=== PATIENT | female | born 1985 | race Caucasian/White ===

== ENCOUNTER 2019-06-29 16:01 | Inpatient (IN) ==
--- NOTE | 2019-06-29 16:10 | PROVIDER DOCUMENTATION ---
HPI-General Adult - General Stated Complaint: R-FOOT INJURY Time Seen by Provider: 06/29/19 16:09 Source: patient Allergies/Adverse Reactions: Patient Allergies Allergy/AdvReac Type Severity Reaction Status Date / Time No Known Allergies Allergy Verified 06/29/19 18:04 - History of Present Illness -Gen Adult Nature of Presenting Problems: Pt. is 33 yof that presents with c/o right foot pain after she fell a week ago. Pt. reports she thought it was fine but now it is red and swollen. Pt. denies any other complaints. Location of Pain/Injury: reports: feet (Right). denies: none, head, face, mouth, neck, chest, upper extremity, hand(s), abdomen, back, pelvis, genitalia, lower extremity, upper body, lower body, generalized, other Pain Radiation: reports: no radiation. denies: arm(s), back, buttocks, chest, epigastric, feet, groin, jaw, flank (L), legs (lower), LLQ, LUQ, neck, periumbilical, flank (R), RLQ, RUQ, shoulder(s), scapula, scrotal, sternal notch, suprapubic, legs (upper), urethral, vaginal, other Quality of Pain: reports: aching, tightness. denies: burning, pressure, throbbing Severity: reports: moderate. denies: mild, severe Onset/Duration: reports: abrupt, 1 week ago Timing: reports: still present. denies: improving, intermittent, getting worse Context/Activities at Onset: reports: light activity, recent trauma history. denies: none, moderate activity, vigorous activity, recent emotional stress, recent physical stress, possible bad food, cold exposure, eating, out of country travel, rest, sleep, sexual activity, other Modifying Factors: improves with: immobilization. worse with: movement Associated Symptoms: reports: joint pain (Right foot). denies: denies symptoms, anxiety, arm pain, back/neck pain, chest pain, constipation, cough, diaphoresis, diarrhea, dizziness, EENT symptoms, fatigue, fever/chills, genitourinary problems, headaches, heartburn, loss of appetite, malaise, muscle aches, sinus congestion/drainage, nausea, rash, seizure, shortness of breath, sensory/motor loss, pain with inspiration, swelling/mass in abdomen, syncope, vomiting, weakne ss, trouble walking, other Similar Symptoms Previously?: Yes Recently seen or treated by another doctor?: No Review of Systems - Adult - REVIEW OF SYSTEMS - ADULT Constitutional: reports: no symptoms reported Eyes: reports: no symptoms reported Ears, Nose, Mouth & Throat: reports: no symptoms reported Cardiovascular: reports: no symptoms reported Respiratory: reports: no symptoms reported Gastrointestinal: reports: no symptoms reported Genitourinary: reports: no symptoms reported Musculoskeletal: reports: see HPI, joint pain (Right foot). denies: back pain, joint swelling, neck pain Integumentary: reports: no symptoms reported Neurological: reports: no symptoms reported Psychiatric: reports: no symptoms reported Past History - Adult - PAST MEDICAL HISTORY-ADULT Review of Records: reports: Old Records Reviewed, Nursing Assessment Review, Medications Reviewed, Social history reviewed & non-contributory. - IMMUNIZATION STATUS Childhood Immunizations: See Nurse Assessment Flu Vaccine: See Nurse Assessment - FAMILY HISTORY Family History: reviewed, not pertinent - SOCIAL HISTORY Smoking: cigarettes, greater than 1 pack/day Provider spent 3-5 mins advising pt. on dangers of tobacco.: Discussed manners to quit use, and f/u contacts for add'l counseling. Physical Exam-General - PHYSICAL EXAM-ADULT Initial Vital Signs Reviewed: Yes - CONSTITUTIONAL General Appearance: alert, mild distress, thin. negative: anxious, slow to respond, obtunded, combative - EYES Eyes: PERRL/EOMI, pink conjunctivae - HEAD, EARS, NOSE, MOUTH & THROAT HENMT: normocephalic/atraumatic, moist mucous membranes - NECK Neck: non-tender, full range of motion, supple, normal inspection - RESPIRATORY Respiratory: lungs clear, normal breath sounds - CARDIOVASCULAR Cardiovascular: normal peripheral pulses, regular rate, rhythm, no edema - GASTROINTESTINAL (ABDOMEN) Abdominal Exam: normal bowel sounds, non tender, soft - LYMPHATIC Lymphatic: no adenopathy - MUSCULOSKELETAL Back Exam: normal inspection, no CVA tenderness, no vertebral tenderness Extremity: erythema (Right foot), swelling (Right foot), tenderness (Right foot) . negative: deformity, inflammation Peripheral Pulses: radial (R): 2+, radial (L): 2+ - SKIN Integumentary: normal color, normal turgor, warm/dry, erythema (Right foot), swelling (Right foot), tenderness (Right foot). negative: diaphoresis, jaundice, mottled - NEUROLOGIC Neurologic: grossly normal, no motor/sensory deficits - PSYCHIATRIC Psych/Mental Status: normal mood/affect, normal thought content, normal thought process, oriented x 3. negative: anxious, paranoid, tearful Progress - PLAN OF CARE/RESULTS Progress/Plan/Lab Results: Orders Category Date Time Status ED: Urine Bedside ORDERED Care 06/29/19 16:10 Ordered Laboratory Tests 06/29/19 06/29/19 06/29/19 17:15 17:15 17:15 WBC 15.31 H RBC 4.91 Hgb 14.3 Hct 43.7 MCV 89.0 MCH 29.1 MCHC 32.7 L RDW Std Deviation 12.6 Plt Count 490 H MPV 8.9 Immature Gran % (Auto) 0.9 H Neut % (Auto) 73.1 Lymph % (Auto) 17.0 L [place] % (Auto) 7.2 Eos % (Auto) 1.5 Baso % (Auto) 0.3 Immature Gran # (Auto) 0.14 H Neut # (Auto) 11.19 H Lymph # (Auto) 2.60 [place] # (Auto) 1.10 H Eos # (Auto) 0.23 Baso # (Auto) 0.05 Sodium 136 Potassium 3.6 Chloride 96 L Carbon Dioxide 27 Anion Gap 13 BUN 12 Creatinine 0.5 Estimated GFR/1.73 m2 > 60 BUN/Creatinine Ratio 24 Glucose 80 Calculated Osmolality 271 Calcium 9.3 Total Bilirubin 0.17 L AST 20 ALT 64 H Alkaline Phosphatase 130 H C-Reactive Prot, Quant 9.09 H Total Protein 7.5 Albumin 4.0 Globulin 3.5 Albumin/Globulin Ratio 1.1 Plasma Lactate 1.4 Discussed results and plan of care with patient. Patient agrees with plan and verbalizes understanding. Result Diagrams: 06/29/19 17:15 06/29/19 17:15 - XRAY 1 XRAY: Right XRAY Study: Foot ([facility] - [address], [address], [place] [id number] [facility] - [address] , [place] [address] Department of Imaging Patient: JAVIER MISHRA [facility] Date: 06/29/19MR#: [id number] : 1985ADM Status: PRE ERAcct#: [id number] Age/Sex: 33/FRoom/Bed: Loc: ED Ordering Physician: Vicki Rios Family Physician: None,PCP Reason for Procedure: injury Signed FOOT COMPLETE RIGHT - 06/29/2019 INDICATION: injury TECHNIQUE: Three views COMPARISON: None FINDINGS: There is significant pedal edema lower than the dorsal foot. There is a benign bone island in the proximal phalanges of the great toe. No fracture or dislocation. No bony erosions. IMPRESSION: Pedal edema over the dorsal foot, nonspecific. No acute bony abnormality. Electronically signed by Efrain Farr 06/29/2019 4:35 PM 06/29/19 1635 Interpreting Physician: Efrain Farr MD Dictated Date/Time: 06/29/19 1635 cc: Vicki Rios; None,PCP) XRAY Interpretation: See note - CONSULTS/PCP/HOSPITALIST Notification #1 *Consult/PCP/Hospitalist*: Dr. Grissom Time Discussed: 18:10 Reason/Comments: Admission Consult Disposition: Will see in ED, Admit Departure - Departure Date of Disposition Decision: 06/29/19 Time of Disposition Decision: 18:05 DIAGNOSIS: Cellulitis Qualifiers: Site of cellulitis: extremity Site of cellulitis of extremity: lower extremity Laterality: right Qualified Code(s): L03.115 - Cellulitis of right lower limb Disposition: ADMITTED INPATIENT 09 Certified Medical Emergency: Emergent Condition: Stable Referrals and Follow-Ups: None,PCP [Primary Care Provider] - - Critical Care Note This patient required my direct & personal management of CC.: No Attestation - Physician/ MARYBETH Attestation Patient care was provided by Advanced Practice Provider:: Yes Advanced Practice Provider:: Vicki Rios Advanced Practice Provider documentation review:: The Mid-level provider documentation, treatment plan and medical decision making was reviewed by the physician who agrees with all treatment and medical decision making by the MLP. The physician spent face to face time with patient:: No Advanced Practice Provider documentation review:: Supervising physician onsite and consulted in the evaluation and care of this patient. The physician did not have a face to face encounter with the patient.
--- NOTE | 2019-06-29 16:37 | Diag Imaging Result Doc PS360 ---
FOOT COMPLETE RIGHT - 06/29/2019 INDICATION: injury TECHNIQUE: Three views COMPARISON: None FINDINGS: There is significant pedal edema lower than the dorsal foot. There is a benign bone island in the proximal phalanges of the great toe. No fracture or dislocation. No bony erosions. IMPRESSION: Pedal edema over the dorsal foot, nonspecific. No acute bony abnormality. Electronically signed by Efrain Farr 06/29/2019 4:35 PM
[2019-06-29] MEDS ORDERED: VANCOMYCIN 1 GM/NS 1 GM/250 ML IVPB IV ONE ×2 (17:19→21:00)
[2019-06-29 17:33] LABS: BASO# 0.05 X1000 (0.0-0.2); BASO% 0.3 % (0.0-0.8); EOS# 0.23 X1000 (0.0-0.7); EOS% 1.5 % (0.0-10.0); HEMATOCRIT 43.7 % (37.0-47.0); HEMOGLOBIN 14.3 g/dL (12.0-16.0); IMM GRAN# 0.14 X1000 (0.0-0.04); IMM GRAN% 0.9 % (0.0-0.5); MCH 29.1 PG (27-31); MCHC 32.7 g/dL (33-37); MONO% 7.2 % (1.7-9.3); MPV 8.9 FL (7.4-10.4); NEUT# 11.19 X1000 (1.4-6.5); NEUT% 73.1 % (42.2-75.2); PLT 490 X1000 (130-400); RBC 4.91 XMIL (4.2-5.4); RDW 12.6 % (11.5-14.5); WBC 15.31 X1000 (4.8-10.8)
[2019-06-29] MEDS ORDERED: ZOFRAN IV ONE (17:55)
[2019-06-29] MEDS ORDERED: MORPHINE IV ONE (17:56)
[2019-06-29 18:00] LABS: AGAP 13; ALB/GLOB RATIO 1.1; ALKALINE PHOSPHATASE 130 U/L (32-104); BUN 12 mg/dL (8-22); C REACTIVE PROT QUANT 9.09 mg/L (0.00-5.00); CALCIUM 9.3 mg/dL (8.8-10.2); CHLORIDE 96 mmol/L (98-107); COSMO 271; CREATININE 0.5 mg/dL (0.5-0.9); ESTIMATED GFR > 60; GLUCOSE 80 mg/dL (70-104); GOT 20 U/L (10-30); GPT 64 U/L (10-36); POTASSIUM 3.6 mmol/L (3.5-5.1); SODIUM 136 mmol/L (136-145); TCO2 27 mmol/L (25-35); TOTAL BILIRUBIN 0.17 mg/dL (0.20-1.00); TOTAL PROTEIN 7.5 g/dL (6.3-8.3)
[2019-06-29] MEDS ORDERED: NS 1,000 ML IV ONE (18:15)
[2019-06-29 18:34] LABS: URINE SOURCE CLEAN CATCH
[2019-06-29 18:35] LABS: SED RATE 14 mm/hr (0-20)
[2019-06-29 18:45] LABS: BILIRUBIN URINE NEGATIVE (NEGATIVE); BLOOD URINE NEGATIVE (NEGATIVE); COLOR YELLOW; GLUCOSE URINE NEGATIVE (NEGATIVE); KETONE URINE NEGATIVE (NEGATIVE); LEUKOCYTES URINE NEGATIVE (NEGATIVE); NITRITE URINE NEGATIVE (NEGATIVE); PROTEIN URINE NEGATIVE (NEGATIVE); SP GRAVITY URINE 1.018; TURBIDITY URINE CLEAR (CLEAR); UROBILINOGEN URINE NORMAL (NORMAL)
[2019-06-29 18:49] LABS: UR EPITHELIAL CELLS <10 /HPF (<10); URINE BACTERIA NEGATIVE /HPF; URINE RBC <10 /HPF (<10); URINE WBC <10 /HPF (<10)
[2019-06-29] MEDS ORDERED: NICODERM PATCH TD ONE (19:26)
[2019-06-29] MEDS ORDERED: VANCOMYCIN IV PER PHARMACY MISC SCH (19:30)
--- NOTE | 2019-06-29 22:02 | HISTORY AND PHYSICAL ---
CHIEF COMPLAINT: Right foot pain and swelling. HISTORY OF PRESENT ILLNESS: A 33-year-old female with a past medical history of gastroparesis presented to the emergency department with a chief complaint of right foot pain, swelling and erythema that has been going on for the past few days. As per the patient, she fell 1-1/2 weeks ago, and she twisted her right ankle. It became edematous, and she had what looks like a hematoma in that ankle. Then she started noticing that the color was changing to more redness, and it was more inflamed. That was not getting better to the point that she is not able to ambulate and is getting worse. She does have some small skin lesions in that area that probably cause this infection. She is not taking any kind of treatment for these problems, so she decided to come to the emergency department. She denied fever. Maybe she has been having some chills, some nausea also. She denies abdominal pain, black stools, dysuria, headache, chest pain. She will be admitted to the medical floor and placed on antibiotics with vancomycin. We will monitor this patient closely. X-ray did not show any bony abnormality. REVIEW OF SYSTEMS: All the 14 points of review of systems were reviewed. All of them were negative except as per HPI. PAST MEDICAL HISTORY: Positive for gastroparesis, hiatal hernia, which apparently was repaired. PAST FAMILY HISTORY: Father with liver cirrhosis. SOCIAL HISTORY: This patient smokes cigarettes, 1 pack a day and she has been smoking for the past 19 years, and at this moment, she is not willing to quit. No alcohol, no drugs. She does have multiple tattoos, around 12, on her body. PAST SURGICAL HISTORY: Positive for: 1. Hiatal hernia repair and apparently during that procedure, she had a lesion on one of the nerves, and after that she has been having problem with gastroparesis. 2. Hysterectomy 6 years ago. 3. Two sections. MEDICATIONS AT HOME: Known. ALLERGIES: No known allergies. PHYSICAL EXAMINATION: VITAL SIGNS: Temperature 97.5 degrees, pulse 118, respiratory rate 18, blood pressure 143/76, oxygen saturation 99% on room air. HEENT: Head normocephalic, no trauma. PERRLA. NECK: Supple. No JVD. No masses. Central trachea. CHEST: Clear to auscultation. No wheezing. No rales. ABDOMEN: Soft. She does have some small chronic wounds from previous surgery and also a lower abdominal incision from previous section. No signs of peritoneal irritation. Positive bowel sounds. EXTREMITIES: Right ankle and dorsal area of the foot has a circumferential redness, swelling, and warm to palpation erythema, really painful to palpation and mobilization. NEUROLOGICAL EXAMINATION: The patient is awake, alert, and oriented x3. No focal deficits. LABORATORY DATA: WBC 15.3, hemoglobin 14.3, hematocrit 43.7, platelets 490,000, sodium 136, potassium 3.6, chloride 96, bicarbonate 27, BUN 12, creatinine 0.5, glucose 80, calcium 9.3, AST 20, ALT 64, alkaline phosphatase 130, CRP 9. Lactate level is 1.4. ASSESSMENT AND PLAN: 1. Right ankle and dorsal foot area cellulitis. This has been happening for the past few days. She twisted her ankle 1-1/2 weeks ago and actually at the beginning she was having edema plus hematoma, but now turned red, erythematosus, tender to palpation, and more painful to mobilization, to the point that she is not able to walk. She does have leukocytosis, and she is tachycardic so she meets criteria for sepsis. 2. Sepsis secondary to cellulitis as above. I will put this patient on vancomycin, and I will monitor this patient closely. 3. Elevated liver function tests. I do not have any previous records from this patient. I will ask for a hepatitis panel. This patient has multiple tattoos in her body. She states that she does not have any history of hepatitis. 4. Tobacco abuse. This patient has been highly advised against tobacco use. I will continue with daily cessation education. As per the patient, she does not have any plan to stop smoking at this moment. She has been smoking for the past 19 years 1 pack a day. 5. Further recommendations pending hospital course. cc: Warren Almazan MD
[2019-06-29] MEDS: ZOFRAN IV PRN (22:15)
[2019-06-29] MEDS: MORPHINE IV PRN (22:15)
[2019-06-29] MEDS: LOVENOX SUBQ SCH (22:16)
[2019-06-30] MEDS: ZOFRAN IV PRN ×5 (03:11→20:41)
[2019-06-30] MEDS: MORPHINE IV PRN ×5 (03:11→20:41)
[2019-06-30 06:54] LABS: BASO# 0.07 X1000 (0.0-0.2); BASO% 0.9 % (0.0-0.8); EOS# 0.22 X1000 (0.0-0.7); EOS% 2.7 % (0.0-10.0); HEMATOCRIT 40.3 % (37.0-47.0); HEMOGLOBIN 12.8 g/dL (12.0-16.0); IMM GRAN# 0.14 X1000 (0.0-0.04); IMM GRAN% 1.7 % (0.0-0.5); LYMPH# 2.23 X1000 (1.2-3.4); LYMPH% 27.8 % (20.5-51.1); MCHC 31.8 g/dL (33-37); MCV 91.2 FL (81-99); MONO# 0.79 X1000 (0.11-0.59); MONO% 9.8 % (1.7-9.3); MPV 8.9 FL (7.4-10.4); NEUT# 4.58 X1000 (1.4-6.5); NEUT% 57.1 % (42.2-75.2); PLT 416 X1000 (130-400); RBC 4.42 XMIL (4.2-5.4); RDW 12.7 % (11.5-14.5); WBC 8.03 X1000 (4.8-10.8)
[2019-06-30 07:32] LABS: AGAP 11; ALB/GLOB RATIO 1.2; ALBUMIN 3.3 g/dL (3.5-5.0); ALKALINE PHOSPHATASE 104 U/L (32-104); BUN 12 mg/dL (8-22); CALCIUM 8.6 mg/dL (8.8-10.2); CHLORIDE 103 mmol/L (98-107); COSMO 280; CREATININE 0.6 mg/dL (0.5-0.9); ESTIMATED GFR > 60; GLUCOSE 86 mg/dL (70-104); GOT 11 U/L (10-30); GPT 42 U/L (10-36); POTASSIUM 3.9 mmol/L (3.5-5.1); SODIUM 141 mmol/L (136-145); TCO2 27 mmol/L (25-35); TOTAL BILIRUBIN 0.22 mg/dL (0.20-1.00)
[2019-06-30] MEDS: VANCOMYCIN 1,500 MG in NS 250 ML IV SCH ×2 (09:45→20:58)
--- NOTE | 2019-06-30 14:37 | Diag Imaging Result Doc PS360 ---
EXAM: CT EXT LOWER RIGHT W/WO CON INDICATION: right foot cellulitis. r/o abscess vs compartment TECHNIQUE: COMPARISON: None. FINDINGS: There is soft tissue edema at the dorsal aspect of the midfoot laterally consistent with the given history of cellulitis. There is a vague fluid collection with mild peripheral enhancement in this region as well suspicious for abscess. It measures 4.0 x 1.0 cm axially and up to 4.4 cm craniocaudally. Underlying this collection, there are small bony fragments that appear to come from the cuboid and anterior process of the calcaneus. These are of unknown acuity and may be chronic. Please correlate clinically for recent trauma. If there has been recent trauma, the small fragments could be recent avulsion fractures and the fluid collection could represent an aging soft tissue hematoma. No other discrete fracture is identified. IMPRESSION: 1.Soft tissue edema at the lateral dorsum of the midfoot with an associated fluid collection in the soft tissues. Cellulitis with abscess should be suspected that there our signs of infection. 2.Small bony fragments that appear to come from the adjacent cuboid and anterior process of the calcaneus underlying the fluid collection. These are of unknown acuity. Please see above discussion. If there is concern that these could be acute, consider MRI or bone scan. Electronically signed by Dieter Godoy 06/30/2019 2:34 PM
--- NOTE | 2019-06-30 15:22 | PROGRESS NOTE ---
DATE: 06/30/2019 SUBJECTIVE: This morning, Ms. Najera refers to be doing well. Denies any new complaints. OBJECTIVE: Vital signs: Blood pressure is 105/64, pulse of 90, respirations 18, temperature is 98.6 degrees. General: Ms. Najera is a 33-year-old, female. She is in bed in no distress. Mucosa is pink and moist. Anicteric, acyanotic. Neck: Supple. Chest: Clear to auscultation. No crepitations. No rhonchi. Cardiovascular: Regular rate and rhythm. No murmurs. No rubs. No gallops. Gastrointestinal: Abdomen is soft, nontender. Bowel sounds present. Extremities: Right lower extremity is remarkably swollen at the ankle level all the way coming up to mid calf. The lateral aspect of the foot is remarkably erythematous and there is some fluctuance to it. It is excruciating, is extremely painful. central nervous system: Patient is awake, alert, and oriented. LABORATORY AND DIAGNOSTIC DATA: 1. WBC is 8.03, hemoglobin and platelet count within normal range. Chemistry is all within normal range. 2. An initial foot x-ray which was done, showed significant pedal edema lower than the dorsal foot, otherwise unremarkable. ASSESSMENT/PLAN: 1. Cellulitis to the right foot. This is remarkably tender. There is a focal area of significant erythematous changes, feels slightly fluctuant. I am concerned if the patient has any abscess formation in there. We will get a CT scan of the foot and also get Surgery to evaluate her. I have added Ancef for streptococcal coverage. 2. Sepsis secondary to foot infection. 3. History of tobacco use and abuse prior to hospitalization. 4. Recent trauma to left foot. X-ray does not show any fracture. We will get a CT scan to make sure we do not miss anything. Depending on the CT scan and Surgery, we might also consider to consult Infectious Disease. cc: Macario Collazo MD
[2019-06-30] MEDS: KEFZOL 2 GM/D5W 2 GM/50 ML IVPB IV SCH ×2 (15:50→22:27)
[2019-06-30] MEDS: LOVENOX SUBQ SCH (20:41)
--- NOTE | 2019-06-30 20:47 | CONSULTATION ---
DATE OF CONSULTATION: 06/30/2019 Ms Sarah Najera is a 33-year-old white female who has a history of trauma to her right foot about 2 weeks ago. She was admitted through the emergency department with cellulitis involving the right foot and we were asked to evaluate her for possible soft tissue abscess. PAST MEDICAL HISTORY: Hiatal hernia, gastroparesis, she had a hysterectomy and 2 C-sections. PAST FAMILY HISTORY: Father has liver cirrhosis. MEDICATIONS: None. ALLERGIES: None. SOCIAL HISTORY: She is a smoker about 1 pack cigarettes per day. REVIEW OF SYSTEMS: A 14-point review of systems was performed and essentially negative except for history of present illness. PHYSICAL EXAM: On exam Ms. Sarah Najera appears to be a healthy young white female of good weight. She has tattoos throughout her body. She is awake, cooperative. No focal deficits. No jaundice. No oral lesions. No cervical or supraclavicular lymphadenopathy. Her heart has regular rate. Lungs are clear to auscultation and percussion bilaterally. Abdomen is soft, nontender without palpable mass. No costovertebral tenderness. Rectal and vaginal exams were not performed. She does have palpable femoral pulses. She has swelling and cellulitis involving the right foot. There may be a palpable fluctuance on the lateral aspect of the right foot consistent with soft tissue abscess. The left foot appears to be normal. She may also have a hematoma involving the dorsum of her right foot. A CT scan of her foot was performed. There does appear to be a fluid collection lateral aspect right foot where she has cellulitis. There is a question of whether she had an avulsion fracture of one of the small bones in her foot. IMPRESSION: Cellulitis and possible soft tissue infection lateral aspect right foot after trauma about 2 weeks ago to this foot. PLAN: She is on IV antibiotics. We will plan to take her to surgery tomorrow morning for incision and drainage of any abscess right foot. I discussed this with the patient. It must be noted that she has been on a diet today so will make her n.p.o. after midnight. cc: Lawanda Burgess MD
--- NOTE | 2019-06-30 23:26 | CONSULTATION ---
DATE OF CONSULTATION: 06/30/2019 HISTORY OF PRESENT ILLNESS: Ms. Sarah Najera is a 33-year-old white female who 2 weeks ago fell when getting out of her car and she fell on her right foot. INCOMPLETE REPORT--DICTATION ENDS HERE. cc: Lawanda Burgess MD
[2019-07-01] MEDS: KEFZOL 2 GM/D5W 2 GM/50 ML IVPB IV SCH ×3 (06:09→22:45)
[2019-07-01] MEDS ORDERED: DIPRIVAN 1% ONE (06:11)
[2019-07-01] MEDS ORDERED: FENTANYL ONE (06:11)
[2019-07-01] MEDS ORDERED: VERSED ONE (07:36)
[2019-07-01] MEDS: DILAUDID ONE ×2 (08:31→08:34)
[2019-07-01] MEDS: VANCOMYCIN 1,500 MG in NS 250 ML IV SCH ×2 (09:02→22:35)
[2019-07-01] MEDS: ZOFRAN IV PRN ×4 (10:51→22:45)
[2019-07-01] MEDS: MORPHINE IV PRN ×4 (10:51→22:45)
[2019-07-01 13:49] LABS: HEPATITIS PROFILE ACUTE SEE COMMENTS
--- NOTE | 2019-07-01 15:51 | OPERATIVE NOTE ---
PROCEDURE DATE: 07/01/2019 PREOPERATIVE DIAGNOSIS: Soft tissue abscess lateral right foot. POSTOPERATIVE DIAGNOSIS: Soft tissue abscess lateral right foot. PRINCIPAL PROCEDURE: Incision and drainage of right foot soft tissue abscess. SURGEON: Lawanda Burgess MD. ANESTHESIA: General. ESTIMATED BLOOD LOSS: 25 mL. DRAINS: None. INDICATIONS: Sarah Najera is a 33-year-old white female who has a history of trauma to the right foot. She was admitted with swelling, redness and pain involving the foot. On exam it was felt that she had a soft tissue abscess lateral aspect right foot. This was confirmed by CT scan. FINDINGS: She had thick brown purulence when the incision was made lateral aspect of the right foot. We opened the abscess cavity up thoroughly and all purulence was drained. We thoroughly irrigated the cavity and packed it with iodoform gauze. DESCRIPTION OF PROCEDURE: The patient was brought to the operating room, placed supine, received general anesthesia, was ventilated. Her right lower extremity was prepped and draped within a sterile field. I used a 15 blade scalpel to make an incision over a palpable fluctuant and red area of lateral aspect of the right foot. It was carried down full thickness of the skin and purulence was drained. Cultures were taken. Using a hemostat I identified the extent of the abscess cavity and made sure that my incision encompassed the whole abscess cavity so that it was drained thoroughly. I used warm irrigation to thoroughly irrigate out the abscess cavity and then I packed it open with iodoform gauze followed by dry dressing and a Kerlix wrap. She tolerated the procedure well with plans for her to go the recovery room and then be readmitted to the floor. cc: Lawanda Burgess MD
--- NOTE | 2019-07-01 17:47 | PROGRESS NOTE ---
DATE: 07/01/2019 SUBJECTIVE: Today Ms. Najera refers to be doing a lot better. She underwent the surgery early this morning. She denies any complaints. OBJECTIVE: Vital signs: Blood pressure is 100/62, pulse of 83, respirations of 18. Temperature is 98.5. The patient is saturating 100%. General: Ms. Najera is a 33-year-old female. She is in bed in no distress. HEENT: Mucosa is pink and moist. Anicteric. Acyanotic. Neck: Supple. No JVD. No carotid bruit. Cardiovascular: Regular rate and rhythm. No murmurs, no rubs, no gallops. Respiratory: Good air entry bilaterally. No crepitations. No rhonchi. GI: Abdomen is soft, nontender. Bowel sounds present. No hepatosplenomegaly. Extremities: The right lower extremity is with a sterile dressing. The redness that was all the way up to the midcalf is completely resolved. FLORIST: The patient is awake, alert, and oriented. LABORATORY DATA: None for today. Surgical report has still not come up yet. I see blood cultures have been 48 hours negative. The culture from the foot is still pending. A CT scan which was done yesterday did show cellulitis, and abscess suspected. ASSESSMENT: 1. Abscess to the right foot with surrounding cellulitis. The patient is status post I D today. We are pending the result of the cultures that were taken during the operation, and we are also pending the OR report to know exactly what was done. Ms. Najera continues to be on vancomycin and Ancef. 2. Sepsis secondary to foot infection. 3. History of tobacco use and abuse prior to hospitalization. 4. Recent trauma to the right foot. X-rays did not show any fracture. A CT scan of the foot does show a small bony fragment that appears to come from the adjacent cuboid and anterior process of the calcaneus. They are, however, unsure of the acuity, and they recommended an MRI, which will be done on Wednesday. Depending on the MRI report, we will also get Orthopaedics to see her accordingly. PLAN: In general, Ms. Najera is doing well. She sustained a trauma to the right foot about a week to 2 weeks ago. Subsequently, she has developed an abscess to the right foot with surrounding cellulitis. She underwent I D with Dr. Burgess. We are pending the official report. Ms. Najera's CT scan also seems to suggest a bony fragment. Unsure if there is a fracture. We will get an MRI and get Orthopaedics to evaluate her accordingly. Depending on the culture result, we will also switch to p.o. antibiotics or get Infectious Disease to evaluate her. cc: Macario Collazo MD
[2019-07-01] MEDS: LOVENOX SUBQ SCH (18:50)
[2019-07-02] MEDS: VANCOMYCIN 1,750 MG in NS 250 ML IV SCH ×2 (00:27→11:53)
[2019-07-02] MEDS: MORPHINE IV PRN ×2 (03:24→08:16)
[2019-07-02] MEDS: KEFZOL 2 GM/D5W 2 GM/50 ML IVPB IV SCH (06:25)
[2019-07-02] MEDS: ZOFRAN IV PRN ×3 (08:15→22:33)
[2019-07-02] MEDS: NICODERM PATCH TD PRN (08:16)
[2019-07-02] MEDS: MAXIPIME 2 GM/NS 2 GM/100 ML IVPB IV SCH ×2 (08:33→22:23)
--- NOTE | 2019-07-02 10:04 | INFECTIOUS DISEASE CONSULT REP ---
DATE: 07/02/2019 CONCLUSION: The patient is status post drainage of a right foot abscess. The patient's right foot also has cellulitis and there is a possibility that it could have osteomyelitis also. RECOMMENDATIONS: I have discontinued cefazolin and substituted for it cefepime. The patient already is on vancomycin. I agree with doing a MRI of the right foot to look for osteomyelitis. PRESENT ILLNESS: The patient tells me approximately 2 weeks ago she fell and injured her right foot. The foot became progressively more swollen and erythematous. Patient also had a fever. She was taken to surgery yesterday by Dr. Burgess and he drained an abscess during the procedure. The patient's CBC shows a white count of 8030, hemoglobin 12.8, platelet count 416,000. Creatinine is 0.6. GFR is greater than 60. Liver function studies are normal except for an ALT of 42. Urinalysis was negative for white cells and bacteria. Hepatitis panel was nonreactive. Blood cultures thus far are sterile. Culture from the patient's right foot is pending. 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 She has had a hysterectomy. Two of her children were delivered by . REVIEW OF SYSTEMS: Eyes and ears: The patient hearing and vision are good. Neck: No stiffness. Respiratory: No cough or shortness of breath. Cardiac: No chest pain or palpitations. GI: No nausea, vomiting, or diarrhea. : No dysuria or flank pain. Bones, joints, muscles: See present illness. Neurologic: No seizures. No loss of motor or sensory function. Integument: No rash. PREVIOUS HOSPITALIZATIONS AND OPERATIONS: Patient has had what sounds like a hiatal hernia repair. She has also had 2 C sections, 1 vaginal delivery, and the patient has also had a hysterectomy. MEDICAL DISEASES: Positive for diabetes mellitus while the patient was . She also has hypertension and what sounds like were 2 transient ischemic attacks she has also had. INFECTIOUS DISEASE HISTORY: Positive for pneumonia and UTI. FAMILY HISTORY: Positive for diabetes mellitus, hypertension, myocardial infarction, stroke and cancer. SOCIAL HISTORY: [place] She is from her . She has a dog as a pet. She lives with her grandmother. The patient says she is on no home medications. She does not have a job. She smokes cigarettes. She does not drink alcoholic beverages or abuse drugs. PHYSICAL EXAMINATION: Vital Signs: Temperature is 98.2 degrees, pulse 77, respirations 12, blood pressure 97/56. The patient is 5 feet 6 inches tall, weighs 164 pounds. General: This is a slightly obese young female. She is in no acute distress. Head/eyes/ears/nose/throat: She can hear my spoken words and see near objects. There is no drainage coming from her nose or ears. Neck: No meningismus. Lungs: Clear to auscultation. Cardiovascular: Regular heart rate. Abdomen: Soft and nontender. Neurologic: The patient is alert. She can move her extremities. There is no tremor. Her memory as regarding her medical history is intact. Integument: The patient does have some tattoos. I did not see any skin rashes though. Thank you for the consult. cc: Jose Armando Simpson MD MTDD
[2019-07-02 10:21] LABS: BASO# 0.06 X1000 (0.0-0.2); BASO% 0.6 % (0.0-0.8); EOS# 0.19 X1000 (0.0-0.7); EOS% 1.8 % (0.0-10.0); HEMATOCRIT 39.9 % (37.0-47.0); HEMOGLOBIN 12.3 g/dL (12.0-16.0); IMM GRAN# 0.21 X1000 (0.0-0.04); LYMPH# 3.25 X1000 (1.2-3.4); LYMPH% 30.6 % (20.5-51.1); MCH 28.5 PG (27-31); MCHC 30.8 g/dL (33-37); MCV 92.6 FL (81-99); MONO# 1.03 X1000 (0.11-0.59); MONO% 9.7 % (1.7-9.3); MPV 8.9 FL (7.4-10.4); NEUT# 5.89 X1000 (1.4-6.5); NEUT% 55.3 % (42.2-75.2); PLT 418 X1000 (130-400); RBC 4.31 XMIL (4.2-5.4); RDW 12.7 % (11.5-14.5); WBC 10.63 X1000 (4.8-10.8)
[2019-07-02 10:49] LABS: AGAP 12; ALB/GLOB RATIO 1.3; ALBUMIN 3.6 g/dL (3.5-5.0); ALKALINE PHOSPHATASE 103 U/L (32-104); BUN 11 mg/dL (8-22); CALCIUM 8.5 mg/dL (8.8-10.2); CHLORIDE 102 mmol/L (98-107); COSMO 279; CREATININE 0.8 mg/dL (0.5-0.9); ESTIMATED GFR > 60; GLUCOSE 99 mg/dL (70-104); GOT 18 U/L (10-30); GPT 33 U/L (10-36); POTASSIUM 3.6 mmol/L (3.5-5.1); SODIUM 140 mmol/L (136-145); TCO2 26 mmol/L (25-35); TOTAL BILIRUBIN < 0.15 mg/dL (0.20-1.00); TOTAL PROTEIN 6.4 g/dL (6.3-8.3)
--- NOTE | 2019-07-02 11:32 | PROGRESS NOTE ---
DATE: 07/02/2019 Ms. Sarah Najera is a 33-year-old, white female, who is now postop day 1 from incision and drainage of an abscess involving the lateral aspect of her right foot. She has had a history of trauma to that foot several weeks ago. I removed the packing from that wound this morning. I cleansed the wound with hydrogen peroxide, and spoke with the nurses on how to dress this wound twice a day. Her cellulitis is resolving with IV antibiotics, and her wound still has what appears to be some hematoma involving the dorsum of her right foot. She has asked that I stop her morphine, and give her a pain medicine by mouth because of her foot. Her wound will heal by secondary intention with local wound care. I did not feel that she had osteomyelitis in the area of her abscess. She can follow up in our outpatient offices in approximately 10 days. cc: Lawanda Burgess MD
[2019-07-02] MEDS: NORCO-10 PO PRN ×2 (11:53→17:30)
--- NOTE | 2019-07-02 17:39 | PROGRESS NOTE ---
DATE: 07/02/2019 INTERVAL HISTORY: The patient reports improvement in right foot pain and difficulty with movement since incision and drainage yesterday by Dr. Burgess. Afebrile overnight. No new complaints. REVIEW OF SYSTEMS: Twelve point review of systems negative except as per interval history. LABS: WBC 10.6, hemoglobin 12.3, hematocrit 39.9, platelets 418,000. Complete metabolic panel essentially normal. Hepatitis panel negative. Last urinalysis normal. Vitals: T-max 98.8 degrees, pulse 88, respirations 20, blood pressure 107/80, O2 saturation 98% on room air. PHYSICAL EXAMINATION: General: No acute distress. Vitals: As above. HEENT: Normocephalic, atraumatic. Moist mucous membranes. Cardiovascular: Regular rate and rhythm. No murmurs noted. Pulmonary: Clear to auscultation bilaterally. No wheezing, rales, or rhonchi. Abdomen: Soft, nontender, nondistended. Bowel sounds positive. Extremities: Peripheral pulses intact. No clubbing or cyanosis. Right foot heavily bandaged. Bandaging is clean, dry, intact. Movement of right foot still somewhat limited by pain but improved from previous. Neurologic: Cranial nerves grossly intact. No focal deficits identified. Psychiatric: Normal mood and affect. Awake, alert, oriented x3. ASSESSMENT/PLAN: 1. Right foot cellulitis and abscess. The patient with fall and trauma to the right foot approximately 2 weeks ago. Increasing swelling and pain since then. CT of the foot suggested possible abscess versus hematoma, so surgery was involved. An incision and drainage was performed yesterday by Dr. Burgess, which did result in a large amount of purulent fluid coming out. Cultures have not grown out anything so far. Cellulitis has improved rapidly with IV antibiotics which we are continuing. She is currently on vancomycin and cefepime. Because of some small bony fragments seen on CT and inability to completely rule out osteomyelitis, Infectious Disease is recommending MRI in the morning. 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 If evidence of osteomyelitis is seen on MRI, then will likely need PICC line for outpatient IV antibiotics. 2. Tobacco abuse. The patient has been counseled on cessation and offered nicotine patch. 3. Elevated liver function tests. Minimal elevation in ALT and alkaline phosphatase on admission now resolved. Bilirubin and AST normal. May have been reactive to a overall inflammatory process. As it was pretty minimal to begin with and normalized rapidly, the patient had no symptoms suggestive of acute liver process and blood cultures have remained negative. Likely no need for further workup at this time. Recommend outpatient recheck of liver function tests in a few months. If they are up again, could consider further workup with ultrasound, etc.
[2019-07-02] MEDS ORDERED: MORPHINE IV ONE (19:07)
[2019-07-02] MEDS: LOVENOX SUBQ SCH (19:37)
[2019-07-03] MEDS: VANCOMYCIN 1,750 MG in NS 250 ML IV SCH ×2 (00:46→11:54)
[2019-07-03] MEDS: PERCOCET-10 PO PRN ×2 (05:51→12:00)
[2019-07-03] MEDS: ZOFRAN IV PRN ×3 (05:51→16:22)
--- NOTE | 2019-07-03 06:59 | GENERAL SURGERY PROGRESS NOTE ---
DATE: 07/03/2019 SUBJECTIVE: Patient seems to be doing okay. She says her foot is looking better. OBJECTIVE: Vital Signs: Patient is currently afebrile. Her vital signs are stable. General exam: No acute distress. Cardiovascular: Regular rate and rhythm. Lungs: Grossly clear. Abdomen: Soft, nontender. Extremities: Wound looks okay. No real associated erythema. ASSESSMENT AND PLAN: A 33-year-old female status post drainage of foot abscess. 1. Status post drainage of foot abscess at this time. The wound looks pretty good. There was some concern about potential osteomyelitis, and a magnetic resonance imaging has been ordered. We will follow up with the magnetic resonance imaging, but at this time continue current treatment. If no signs of osteomyelitis on the magnetic resonance imaging, we will consider transitioning her to oral antibiotics. If she does, may consider just intravenous antibiotics and PICC line placement. cc: Gerson Arreola MD
--- NOTE | 2019-07-03 09:39 | Diag Imaging Result Doc PS360 ---
EXAM: MRI LOW EXT JT W/WO CON-RIGHT HISTORY: ? Avulsive fracture on CT TECHNIQUE: MRI right foot with and without contrast. Axial, sagittal, and coronal images obtained in multiple sequences. These are followed by post contrasted axial and coronal images. COMPARISON: CT from 06/30/2019 FINDINGS: There continues to be soft tissue edema along the dorsal aspect of the lateral midfoot consistent with cellulitis. There is a poorly defined fluid collection measuring approximately 4 x 5 x 25 mm. No significant bone marrow edema within the distal calcaneus or cuboid suggesting recent a avulsion fractures. However, there is edema within the distal talus with a small nondisplaced fracture fragment. Small amount of bone marrow edema in the navicular, but no definite fracture. IMPRESSION: 1.Cellulitis with a small soft tissue abscess 2.Nondisplaced distal talus fracture Electronically signed by Sherman Katz 07/03/2019 9:36 AM
[2019-07-03] MEDS: MAXIPIME 2 GM/NS 2 GM/100 ML IVPB IV SCH (09:53)
[2019-07-03] MEDS: NICODERM PATCH TD PRN (12:00)
--- NOTE | 2019-07-03 16:01 | INFECTIOUS DISEASE PROGRESS NO ---
DATE: 07/03/2019 PRESENT ILLNESS: The patient is status post drainage of a right foot abscess. The foot also has cellulitis. The patient had an MRI today and there is no presence of osteomyelitis. MEDICATIONS: The patient is on cefepime and vancomycin. PHYSICAL EXAMINATION: Vital Signs: Temperature is 98.6 degrees, pulse 99, respirations 15, blood pressure is 103/63. General: This is a healthy-appearing, young female she is in no acute distress. Head/Eyes/Ears/Nose/Throat: She can hear my spoken words and see near objects. There is no drainage from the nose or ears. She does not have any white coating on her tongue. Neck: No stiffness. Lungs: Clear to auscultation. Cardiovascular: Heart rate is regular. Abdomen: Soft and nontender. Extremities: I removed the dressing from the patient's right foot. The foot is, according to the patient, much less red and swollen than it was prior to surgery. The incision in the foot does not have any purulent drainage. The visualized tissue that I can see is beefy red in color. Neurologic: The patient is alert she. Can move her extremities. There is no tremor. LAB AND X-RAY: CBC shows a white count of 10,630, hemoglobin 12.3, platelet count 418,000. Creatinine is 0.8. GFR is greater than 60. Liver function studies are normal. MRI shows no osteomyelitis in the foot. Creatinine is 0.8. GFR is greater than 60. Liver function studies are normal. MEDICAL DISEASES: The patient was a diabetic while she was . She also has hypertension and possibly 2 transient ischemic attacks. ASSESSMENT AND PLAN: The plan is now to send the patient home on Keflex 500 mg p.o. every 8 hours for 1 week. The patient will have a followup with Dr. Burgess, who is the surgeon that operated on her. I told the patient to call me if she has diarrhea or a rash from the antibiotic. cc: Jose Armando Simpson MD MTDFe
[2019-07-03 16:27] VITALS: BP 99/63
--- NOTE | 2019-07-05 17:44 | DISCHARGE SUMMARY ---
ADMISSION DATE: 06/29/2019 DISCHARGE DATE: 07/03/2019 CONSULTS: Infectious Disease, Dr. Simpson. General Surgery, Dr. Arreola. PERTINENT STUDIES: Foot x-ray with pedal edema over the right foot. Right foot CT with soft tissue edema at the lateral dorsum of the midfoot with fluid collection. Cellulitis with abscess suspected. Small bony fragments that appear to come from the adjacent cuboid and anterior process of the calcaneus underneath the fluid collection. Right foot MRI, cellulitis with small tissue abscess. Nondisplaced distal talus fracture. No evidence of osteomyelitis. DISCHARGE DIAGNOSES: 1. Right foot cellulitis. 2. Right foot abscess. 3. Right foot fracture, status post trauma, closed fracture. Initial evaluation. 4. Tobacco abuse. 5. Minimally elevated liver function tests. 6. Tobacco abuse. HOSPITAL COURSE: The patient is a 33-year-old female with essentially no past medical history. She had a fall approximately two weeks prior to admission with slowly increasing swelling and pain. Then, began having pain that became acutely worse, and began having increased redness and swelling. She eventually came in for evaluation, was found to have a right ankle and dorsal foot cellulitis with large fluid collection. It was thought that she likely had an abscess, so Surgery was involved. They did perform an I D with copious amounts of purulent material expressed during that procedure. It was packed. She was initially placed on antibiotics with cefazolin and vancomycin. When Infectious Disease evaluated the patient, they changed cefazolin to cefepime. On discharge, she was changed to oral Keflex. When Infectious Disease saw the patient, they were concerned that she might have underlying osteomyelitis given the tiny bone fragment seen on CT underlying the injury, but MRI, while it did show a small nondisplaced distal talus fracture, it did not show any evidence of osteomyelitis. Cultures did not grow anything. The patient did have a pretty significant leukocytosis on admission of 15.3, but this was resolved by the time of discharge, was down to 10.6. This patient's leukocytosis was resolved. She had no fever. There was no evidence of osteomyelitis and abscess had been treated with incision and drainage. It was felt she was stable to go home on oral antibiotics with some oxycodone for pain control, to follow up with Surgery and her PCP. If the patient's foot and ankle pain do not improve over the next week or two, she may need orthopedic evaluation for small distal nondisplaced talus fracture. She was given crutches to use on discharge. DISCHARGE VITALS: Temperature 98.1 degrees, pulse 88, respirations 16, blood pressure 99/63, O2 saturation 99% on room air. DISCHARGE DIET: Regular. DISCHARGE MEDICATIONS: Keflex 500 mg p.o. q.8 hours, Percocet 10/325 q.6 hours as needed. FOLLOWUP: Patient is discharging home on oral Keflex for right foot cellulitis and abscess. The patient is to follow up with Surgery and PCP. The patient may need orthopedic evaluation if foot pain persists for small nondisplaced distal talus fracture. TIME: Greater 30 minutes was spent arranging discharge and counseling patient.
== END 2019-07-03 17:36 | disposition home or self-care (01) | DRG 854 ==
LOC: ED 16:01 → SUATTDRO 20:06 → 4N 20:06
PROVIDERS: ATTEND Internal Medicine